=== PATIENT | male | born 1955 | race Native Hawaiian/Other Pacific Islander ===

== ENCOUNTER 2020-01-14 15:10 | Emergency (ER) | payer OTHER ==
[~2020-01-14] VITALS: Ht 180.3 cm; Wt 70.8 kg
[2020-01-14 15:22] VITALS: TEMP 98.9
[2020-01-14 17:20] VITALS: BP 138/71
== END 2020-01-14 17:20 | disposition home or self-care (01) ==
LOC: ED 15:10
PROC: 0HQGXZZ Repair Left Hand Skin, External Approach (ICD-10-PCS; principal; 2020-01-14)
DX: S61.412A Laceration without foreign body of left hand, initial encounter (principal); S61.213A Laceration without foreign body of left middle finger without damage to nail, initial encounter; W45.8XXA Other foreign body or object entering through skin, initial encounter; Y92.69 Other specified industrial and construction area as the place of occurrence of the external cause
CPT/HCPCS: 90471; 90715; 99283; J2001

== ENCOUNTER 2020-08-12 08:35 | Outpatient (CLI) | payer OTHER | END 2020-08-12 19:40 | disposition home or self-care (01) | LOC: INF 08:35 | PROVIDERS: ATTEND Internal Medicine Endocrinology, Diabetes & Metabolism | DX: Z23 Encounter for immunization (principal) | CPT/HCPCS: 96372 ==

== ENCOUNTER 2020-09-09 14:22 | Outpatient (CLI) | payer OTHER | END 2020-09-09 21:31 | disposition home or self-care (01) | LOC: INF 14:22 | PROVIDERS: ATTEND Internal Medicine | DX: Z23 Encounter for immunization (principal) | CPT/HCPCS: 96372 ==

== ENCOUNTER → 2021-06-04 | Outpatient (CLI) | payer OTHER | LOC: INF 04-04 10:55 | PROVIDERS: ATTEND Internal Medicine | DX: Z23 Encounter for immunization (principal) | CPT/HCPCS: 0064A ==